=== PATIENT | male | born 1945 | race Caucasian/White ===

== ENCOUNTER 2017-12-02 06:13 | Observation (INO) | payer MEDICARE, OTHER ==
[~2017-12-02] VITALS: Ht 175.3 cm; Wt 72.0 kg
[~2017-12-02 06:13] MED LIST: AZIT500T34 PO; CALC-627 PO; ESCI10TA45 PO; NORCO10T PO; RIFA300C36 PO; SYN0.0125T PO; [UNRECOGNIZED DRUG - CODE] PO
[2017-12-02] MEDS ORDERED: normal saline 1000ML IV soln IVB ONE (06:45)
[2017-12-02 07:06] LABS: BASOPHILS % (AUTO) 0.7 % (0-1); EOSINOPHILS # (AUTO) 0.1 X10'3 (0-0.9); EOSINOPHILS % (AUTO) 2.1 % (0-6); HEMATOCRIT 45.1 % (42.0-52.0); HEMOGLOBIN 14.9 g/dl (14.0-17.9); LYMPHOCYTES # (AUTO) 0.9 X10'3 (1.1-4.8); LYMPHOCYTES % (AUTO) 12.2 % (21-51); MEAN CORPUSCULAR HEMOGLOBIN 26.1 PG (27.0-31.0); MEAN CORPUSCULAR HGB CONC 33.1 % (33.0-36.5); MEAN CORPUSCULAR VOLUME 78.9 FL (78-98); MEAN PLATELET VOLUME 8.8 FL (7.4-10.4); MONOCYTES # (AUTO) 0.7 X10'3 (0-0.9); MONOCYTES % (AUTO) 9.5 % (2-12); NEUTROPHILS # (AUTO) 5.4 X10'3 (1.8-7.7); NEUTROPHILS % (AUTO) 75.5 % (42-75); PLATELET COUNT 220 X10'3 (140-440); RED BLOOD COUNT 5.72 X10'6 (4.70-6.10); RED CELL DISTRIBUTION WIDTH 16.4 % (11.5-14.5); WHITE BLOOD COUNT 7.1 X10'3 (4.5-11.0)
[2017-12-02 07:15] LABS: PROTHROMBIN TIME 10.5 SECONDS (9.0-12.0)
[2017-12-02 07:23] LABS: ALANINE AMINOTRANSFERASE 31 U/L (12-78); ALBUMIN 3.5 G/DL (3.4-5.0); ALBUMIN/GLOBULIN RATIO 1.1 (1.1-1.5); ALKALINE PHOSPHATASE 80 IU/L (46-116); ANION GAP 11 (8-16); ASPARTATE AMINO TRANSFERASE 22 U/L (10-37); BILIRUBIN,TOTAL 0.4 MG/DL (0.1-1.0); BLOOD UREA NITROGEN 20 MG/DL (7-18); BUN/CREATININE RATIO 15.6 (5.4-32.0); CALCIUM 8.5 MG/DL (8.5-10.1); CHLORIDE 106 MMOL/L (99-107); CREATININE 1.28 MG/DL (0.60-1.10); GLUCOSE 111 MG/DL (70-104); POTASSIUM 3.7 MMOL/L (3.5-5.1); SODIUM 141 MMOL/L (135-145); TOTAL CARBON DIOXIDE 24.5 MMOL/L (24-32); TOTAL PROTEIN 6.7 G/DL (6.4-8.2); eGFR 56 ML/MIN
[2017-12-02 07:32] LABS: MAGNESIUM 2.1 MG/DL (1.5-2.4); PHOSPHORUS 2.4 MG/DL (2.3-4.5)
[2017-12-02 07:56] LABS: CLARITY,URINE CLEAR (Clear); COLOR,URINE YELLOW (Yellow); GLUCOSE, URINE NEGATIVE (Neg); KETONES,URINE NEGATIVE (Neg); LEUKOCYTE ESTERASE ,URINE NEGATIVE (Neg); NITRITES, URINE NEGATIVE (Neg); OCCULT BLOOD,URINE NEGATIVE (Neg); PROTEIN,URINE NEGATIVE (Neg); UROBILINOGEN,URINE 0.2 E.U/dL (0.2-1.0)
[2017-12-02 08:10] LABS: UA COLLECTION TYPE CLN CATCH MIDSTREAM
[2017-12-02] MEDS ORDERED: LEVO50TA66 PO (08:16)
[2017-12-02] MEDS ORDERED: LEVO75TA56 PO (08:16)
[2017-12-02] MEDS ORDERED: NYST50002 PO (08:20)
[2017-12-02] MEDS ORDERED: potassium Cl 40MEQ/NS 500ml 500 ML IV PRN ×2 (08:45)
[2017-12-02] MEDS ORDERED: magnesium 1gm/100ml D5W IVPB 100 ML IV PRN (08:45)
[2017-12-02] MEDS ORDERED: acetaminophen 325mg tablet PO PRN (08:45)
[2017-12-02] MEDS ORDERED: magnesium hydroxide 30ml (MOM) UD suspension PO PRN (08:45)
[2017-12-02] MEDS ORDERED: magnesium 4gm in 100ml NS 100 ML IV PRN (08:45)
[2017-12-02] MEDS ORDERED: mag hydrox/Alum hydrox/simeth 30ml oral suspension PO PRN (08:45)
[2017-12-02] MEDS ORDERED: potassium Cl 20 mEq SR tablet PO PRN ×2 (08:45)
[2017-12-02] MEDS ORDERED: ondansetron/PF 4mg/2ml inj IV PRN (08:45)
[2017-12-02] MEDS: normal saline 1000ml 1,000 ML IV SCH (09:56)
[2017-12-02] MEDS: fluticasone nasal spray 16GM bottle NS SCH (10:25)
[2017-12-02] MEDS: salt irrigation nasal spray 45 ML SPRAY NS SCH ×3 (11:00→21:36)
[2017-12-02 18:00] VITALS: BP 128/83
[2017-12-02 22:00] VITALS: BP_SYST 100; BP_SYST 102; BP_SYST 98; BP_DIAS 69; BP_DIAS 70; BP_DIAS 71
[2017-12-03 02:00] VITALS: BP 123/67
[2017-12-03] MEDS: salt irrigation nasal spray 45 ML SPRAY NS SCH (06:00)
[2017-12-03 06:01] LABS: BASOPHILS % (AUTO) 0.6 % (0-1); EOSINOPHILS # (AUTO) 0.3 X10'3 (0-0.9); EOSINOPHILS % (AUTO) 4.5 % (0-6); HEMATOCRIT 43.4 % (42.0-52.0); HEMOGLOBIN 14.2 g/dl (14.0-17.9); LYMPHOCYTES # (AUTO) 1.2 X10'3 (1.1-4.8); LYMPHOCYTES % (AUTO) 20.5 % (21-51); MEAN CORPUSCULAR HEMOGLOBIN 26.1 PG (27.0-31.0); MEAN CORPUSCULAR HGB CONC 32.6 % (33.0-36.5); MEAN CORPUSCULAR VOLUME 80.1 FL (78-98); MEAN PLATELET VOLUME 9.1 FL (7.4-10.4); MONOCYTES # (AUTO) 0.7 X10'3 (0-0.9); MONOCYTES % (AUTO) 11.8 % (2-12); NEUTROPHILS # (AUTO) 3.8 X10'3 (1.8-7.7); NEUTROPHILS % (AUTO) 62.6 % (42-75); PLATELET COUNT 207 X10'3 (140-440); RED BLOOD COUNT 5.42 X10'6 (4.70-6.10); RED CELL DISTRIBUTION WIDTH 16.5 % (11.5-14.5)
[2017-12-03 06:21] LABS: ALANINE AMINOTRANSFERASE 29 U/L (12-78); ALKALINE PHOSPHATASE 71 IU/L (46-116); ANION GAP 9 (8-16); ASPARTATE AMINO TRANSFERASE 22 U/L (10-37); BILIRUBIN,TOTAL 0.4 MG/DL (0.1-1.0); BLOOD UREA NITROGEN 12 MG/DL (7-18); BUN/CREATININE RATIO 12.1 (5.4-32.0); CALCIUM 7.9 MG/DL (8.5-10.1); CHLORIDE 109 MMOL/L (99-107); CHOL/HDL RATIO 6.8 (0.00-4.99); CHOLESTEROL 238 MG/DL (0-200); CREATININE 0.99 MG/DL (0.60-1.10); GLUCOSE 89 MG/DL (70-104); HDL CHOLESTEROL 35 MG/DL (35-60); LDL CHOLESTEROL 176 MG/DL (50-100); MAGNESIUM 1.8 MG/DL (1.5-2.4); POTASSIUM 4.2 MMOL/L (3.5-5.1); SODIUM 143 MMOL/L (135-145); TOTAL CARBON DIOXIDE 24.8 MMOL/L (24-32); TRIGLYCERIDES 120 MG/DL (20-135); eGFR 75 ML/MIN
[2017-12-03] MEDS ORDERED: levoTHYROXINE 125mcg tablet PO SCH (07:00)
[2017-12-03 07:04] VITALS: BP 123/72
[2017-12-03] MEDS: normal saline 1000ml 1,000 ML IV SCH (07:43)
[2017-12-03] MEDS: fluticasone nasal spray 16GM bottle NS SCH (07:44)
[2017-12-03] MEDS ORDERED: citalopram 20mg tablet PO SCH (08:00)
[2017-12-03] MEDS ORDERED: non-formulary drug (Levothyroxine Sodium (Levoxyl) 1 TAB) PO SCH (08:00)
[2017-12-03] MEDS ORDERED: enoxaparin 40mg/0.4ml syringe SQ SCH (08:00)
[2017-12-03] MEDS ORDERED: K and/or MAG REPLACEMENT MC SCH (08:00)
== END 2017-12-03 09:45 | disposition home or self-care (01) ==
LOC: ER 06:13 → ED HOLD 08:41 → ORTHO 4S 10:40
PROVIDERS: ADMIT Family Medicine; ATTEND Family Medicine
DX: R42 Dizziness and giddiness (principal); E03.9 Hypothyroidism, unspecified; R09.81 Nasal congestion; A69.20 Lyme disease, unspecified; Z85.850 Personal history of malignant neoplasm of thyroid; Z87.442 Personal history of urinary calculi
CPT/HCPCS: 36415; 70450; 70544; 70547; 70551; 71045; 80053; 80061; 81003; 83605; 83735; 84100; 84443; 84484; 85025; 85610; 87040; 87070; 93005; 93306; 93880; 96360; 96361; 96372; 99285; G0378; J1650; J7030

== ENCOUNTER 2017-12-15 22:47 | Emergency (ER) | payer MEDICARE, OTHER ==
[~2017-12-15] VITALS: Ht 175.3 cm; Wt 75.2 kg
[~2017-12-15 22:47] MED LIST changes: -AZIT500T34 PO; -CALC-627 PO; +LEVO50TA66 PO; +LEVO75TA56 PO; -NORCO10T PO; +NYST50002 PO; -RIFA300C36 PO; -SYN0.0125T PO; -[UNRECOGNIZED DRUG - CODE] PO
[2017-12-16] MEDS ORDERED: LORazepam 2 mg/ml vial IV ONE (00:15)
[2017-12-16] MEDS ORDERED: meclizine 12.5mg tablet PO ONE (00:15)
[2017-12-16] MEDS ORDERED: normal saline 1000ml 1,000 ML IV ONE (00:15)
[2017-12-16] MEDS ORDERED: ondansetron/PF 4mg/2ml inj IV ONE (00:15)
[2017-12-16] MEDS ORDERED: ONDA4TAB9 PO (01:29)
[2017-12-16] MEDS ORDERED: ketorolac trometh. 30mg/ml inj. IV ONE (01:30)
[2017-12-16 01:46] VITALS: BP 108/68
== END 2017-12-16 01:50 | disposition home or self-care (01) ==
LOC: ER 22:48
DX: R42 Dizziness and giddiness (principal); E03.9 Hypothyroidism, unspecified; G62.9 Polyneuropathy, unspecified; Z86.14 Personal history of Methicillin resistant Staphylococcus aureus infection; Z98.890 Other specified postprocedural states; Z87.442 Personal history of urinary calculi; Z88.8 Allergy status to other drugs, medicaments and biological substances; Z91.041 Radiographic dye allergy status; Z88.1 Allergy status to other antibiotic agents
CPT/HCPCS: 93005; 96361; 96374; 96375; 99284; J1885; J2060; J2405; J8597

== ENCOUNTER → 2018-02-17 | Outpatient (CLI) | payer MEDICARE, OTHER | END | disposition home or self-care (01) | LOC: LAB 13:59 | PROVIDERS: ATTEND Specialist | DX: C73 Malignant neoplasm of thyroid gland (principal) | CPT/HCPCS: 36415; 84443 ==

== ENCOUNTER → 2018-02-17 | Outpatient (CLI) | payer MEDICARE, OTHER | END | disposition home or self-care (01) | LOC: LAB 14:20 | PROVIDERS: ATTEND Family Medicine | DX: R35.1 Nocturia (principal); R97.20 Elevated prostate specific antigen [PSA] | CPT/HCPCS: 36415; 84153; 84154 ==

== ENCOUNTER 2018-07-14 08:59 | Emergency (ER) | payer MEDICARE, OTHER ==
[~2018-07-14] VITALS: Ht 175.3 cm; Wt 76.6 kg
--- NOTE | 2018-07-14 09:44 | NUR ---
COLLECTED URINE FROM PT, LAB AT BEDSIDE DRAWING PER ORDERS NOW, AUXILARY TO BRING URINE SPECIMEN TO LAB TO PROCESS PER SUSHILA.
[2018-07-14 10:03] LABS: BASOPHILS % (AUTO) 0.7 % (0-1); EOSINOPHILS # (AUTO) 0.2 X10'3 (0-0.9); EOSINOPHILS % (AUTO) 2.9 % (0-6); HEMATOCRIT 43.3 % (42.0-52.0); HEMOGLOBIN 14.2 g/dl (14.0-17.9); LYMPHOCYTES % (AUTO) 14.9 % (21-51); MEAN CORPUSCULAR HEMOGLOBIN 25.1 PG (27.0-31.0); MEAN CORPUSCULAR HGB CONC 32.8 g/dL (33.0-36.5); MEAN CORPUSCULAR VOLUME 76.8 FL (78-98); MEAN PLATELET VOLUME 7.9 FL (7.4-10.4); MONOCYTES # (AUTO) 0.8 X10'3 (0-0.9); MONOCYTES % (AUTO) 11.9 % (2-12); NEUTROPHILS # (AUTO) 4.5 X10'3 (1.8-7.7); NEUTROPHILS % (AUTO) 69.6 % (42-75); PLATELET COUNT 261 X10'3 (140-440); RED BLOOD COUNT 5.64 X10'6 (4.70-6.10); RED CELL DISTRIBUTION WIDTH 17.1 % (11.5-14.5); WHITE BLOOD COUNT 6.5 X10'3 (4.5-11.0)
[2018-07-14 10:13] LABS: CLARITY,URINE CLEAR (Clear); GLUCOSE, URINE NEGATIVE (Neg); KETONES,URINE TRACE mg/dl (Neg); LEUKOCYTE ESTERASE ,URINE NEGATIVE (Neg); NITRITES, URINE NEGATIVE (Neg); OCCULT BLOOD,URINE NEGATIVE (Neg); PROTEIN,URINE TRACE mg/dl (Neg); UROBILINOGEN,URINE 0.2 E.U/dL (0.2-1.0)
[2018-07-14 10:18] LABS: URINE AMPHETAMINE SCREEN NEGATIVE (Neg); URINE BARBITUATE SCREEN NEGATIVE (Neg); URINE BENZODIAZEPINES SCREEN NEGATIVE (Neg); URINE CANNABINOID SCREEN NEGATIVE (Neg); URINE COCAINE SCREEN NEGATIVE (Neg); URINE METHADONE SCREEN NEGATIVE (Neg); URINE OPIATE SCREEN NEGATIVE (Neg); URINE PHENCYCLIDINE SCREEN NEGATIVE (Neg)
[2018-07-14 10:21] LABS: COLOR,URINE DARK YELLOW (Yellow); UA COLLECTION TYPE VOIDED
[2018-07-14 10:22] LABS: ALANINE AMINOTRANSFERASE 61 U/L (12-78); ALBUMIN 3.1 G/DL (3.4-5.0); ALBUMIN/GLOBULIN RATIO 0.8 (1.1-1.5); ALKALINE PHOSPHATASE 94 IU/L (46-116); ANION GAP 9 (8-16); ASPARTATE AMINO TRANSFERASE 28 U/L (10-37); BILIRUBIN,TOTAL 0.3 MG/DL (0.1-1.0); BLOOD UREA NITROGEN 24 MG/DL (7-18); BUN/CREATININE RATIO 17.8 (5.4-32.0); CALCIUM 8.3 MG/DL (8.5-10.1); CHLORIDE 107 MMOL/L (99-107); CREATININE 1.35 MG/DL (0.60-1.10); GLUCOSE 100 MG/DL (70-104); POTASSIUM 3.9 MMOL/L (3.5-5.1); SODIUM 140 MMOL/L (135-145); TOTAL CARBON DIOXIDE 24.4 MMOL/L (24-32); TOTAL PROTEIN 6.8 G/DL (6.4-8.2); eGFR 52 ML/MIN
[2018-07-14 10:23] LABS: BACTERIA,URINE FEW /HPF (Neg); CAL OXALATE CRYSTALS 2+ /HPF (NEGATIVE); MUCUS STRANDS FEW /LPF (Neg); RBC,URINE 0-2 /HPF (0-2); SQUAMOUS EPITHELIAL CELL,UR FEW /LPF (FEW); WBC,URINE 20-30 /HPF (0-4)
[2018-07-14] MEDS ORDERED: DOXY100C43 PO (10:40)
[2018-07-14 10:56] VITALS: BP 122/68
== END 2018-07-14 11:00 | disposition home or self-care (01) ==
LOC: ER 09:00
DX: N39.0 Urinary tract infection, site not specified (principal); M76.61 Achilles tendinitis, right leg; M79.605 Pain in left leg; E03.9 Hypothyroidism, unspecified; Z86.14 Personal history of Methicillin resistant Staphylococcus aureus infection; Z98.890 Other specified postprocedural states; Z88.1 Allergy status to other antibiotic agents; Z91.041 Radiographic dye allergy status; Z88.8 Allergy status to other drugs, medicaments and biological substances; Z79.899 Other long term (current) drug therapy
CPT/HCPCS: 36415; 80053; 80305; 81001; 84145; 85025; 85651; 87088; 99283

== ENCOUNTER 2020-10-05 12:24 | Emergency (ER) | payer MEDICARE, OTHER ==
[~2020-10-05] VITALS: Ht 175.3 cm; Wt 72.7 kg
[2020-10-05] MEDS ORDERED: dexamethasone sod phosphate 10mg/ml inj IV STA ×2 (12:38→13:47)
[2020-10-05] MEDS ORDERED: acetaminophen 325mg tablet PO STA (12:38)
[2020-10-05] MEDS ORDERED: CefTRIAXone 2gm/D5W 50ml BAG 50 ML IV ONE (12:40)
[2020-10-05] MEDS ORDERED: normal saline 1000ML IV soln IV ONE (12:40)
[2020-10-05 13:11] LABS: BASOPHILS % (AUTO) 0.4 % (0-1); EOSINOPHILS % (AUTO) 0 % (0-6); HEMATOCRIT 47.4 % (42.0-52.0); HEMOGLOBIN 15.5 g/dl (14.0-17.9); LYMPHOCYTES # (AUTO) 0.6 X10'3 (1.1-4.8); LYMPHOCYTES % (AUTO) 12.4 % (21-51); MEAN CORPUSCULAR HEMOGLOBIN 27.7 PG (27.0-31.0); MEAN CORPUSCULAR HGB CONC 32.6 g/dL (33.0-36.5); MEAN CORPUSCULAR VOLUME 84.8 FL (78-98); MEAN PLATELET VOLUME 9.4 FL (7.4-10.4); MONOCYTES # (AUTO) 0.4 X10'3 (0-0.9); MONOCYTES % (AUTO) 6.9 % (2-12); NEUTROPHILS # (AUTO) 4.1 X10'3 (1.8-7.7); NEUTROPHILS % (AUTO) 80.3 % (42-75); PLATELET COUNT 165 X10'3 (140-440); RED BLOOD COUNT 5.59 X10'6 (4.70-6.10); RED CELL DISTRIBUTION WIDTH 14.7 % (11.5-14.5); WHITE BLOOD COUNT 5.2 X10'3 (4.5-11.0)
[2020-10-05] MEDS ORDERED: CASIRIVIMAB (REGN10933) 1332MG 600 MG, IMDEVIMAB (REGN10987) 1332mg 600 MG in normal sa... IV ONE (14:35)
[2020-10-05 14:53] LABS: ALANINE AMINOTRANSFERASE 27 U/L (12-78); ALBUMIN 3.2 G/DL (3.4-5.0); ALBUMIN/GLOBULIN RATIO 0.8 (1.1-1.5); ALKALINE PHOSPHATASE 86 IU/L (46-116); ANION GAP 15 (8-16); ASPARTATE AMINO TRANSFERASE 32 U/L (10-37); BILIRUBIN,TOTAL 0.3 MG/DL (0.1-1.0); BLOOD UREA NITROGEN 25 MG/DL (7-18); BUN/CREATININE RATIO 12.4 (5.4-32.0); CALCIUM 8.1 MG/DL (8.5-10.1); CHLORIDE 107 MMOL/L (99-107); CREATININE 2.02 MG/DL (0.60-1.10); GLUCOSE 91 MG/DL (70-104); POTASSIUM 4.5 MMOL/L (3.5-5.1); SODIUM 142 MMOL/L (135-145); TOTAL CARBON DIOXIDE 20.3 MMOL/L (24-32); TOTAL PROTEIN 7.2 G/DL (6.4-8.2); eGFR 33 ML/MIN
--- NOTE | 2020-10-05 18:34 | NUR ---
PT HAS READ INFORMED PAPERWORK FOR MONOCLONAL ANTIBODIES AND IS AGREEABLE TO GET MEDICINE
[2020-10-05] MEDS ORDERED: DEXA4TAB67 PO (18:43)
[2020-10-05] MEDS ORDERED: ALBU6.7H9 INH (18:43)
[2020-10-05] MEDS ORDERED: AZIT500T PO (18:43)
--- NOTE | 2020-10-05 20:29 | NUR ---
PT VITALS REMAIN STABLE. PT REPORTS NO WORSENING CONDITION. RESTING W/O COMPLAINT.
[2020-10-05 20:51] VITALS: BP 121/65
== END 2020-10-05 20:59 | disposition home or self-care (01) ==
LOC: ER 12:25
DX: U07.1 COVID-19 (principal); J12.82 Pneumonia due to coronavirus disease 2019; R05 Cough; E86.0 Dehydration; E03.9 Hypothyroidism, unspecified; Z87.01 Personal history of pneumonia (recurrent); Z87.442 Personal history of urinary calculi; Z86.14 Personal history of Methicillin resistant Staphylococcus aureus infection; Z85.9 Personal history of malignant neoplasm, unspecified; Z98.890 Other specified postprocedural states; Z88.1 Allergy status to other antibiotic agents; Z88.8 Allergy status to other drugs, medicaments and biological substances; Z79.2 Long term (current) use of antibiotics; Z79.899 Other long term (current) drug therapy
CPT/HCPCS: 36415; 71045; 80053; 83605; 83880; 84145; 84484; 85025; 87040; 93005; 96365; 96375; 99291; J0696; J1100; J7030; M0243; Q0243

== ENCOUNTER 2021-08-04 17:00 | Emergency (ER) | payer MEDICARE, BC ==
[~2021-08-04] VITALS: Ht 175.3 cm; Wt 72.0 kg
[~2021-08-04 17:00] MED LIST changes: +ALBU6.7H9 INH; +DEXA4TAB67 PO
[2021-08-04] MEDS ORDERED: OXYC-481 PO (18:39)
[2021-08-04] MEDS ORDERED: ketorolac trometh. 30mg/ml inj. IM ONE (18:40)
[2021-08-04 19:58] VITALS: BP 130/83
== END 2021-08-04 20:00 | disposition home or self-care (01) ==
LOC: ER 17:02
DX: M53.3 Sacrococcygeal disorders, not elsewhere classified (principal); Z86.16 Personal history of COVID-19; G62.9 Polyneuropathy, unspecified; E03.9 Hypothyroidism, unspecified; Z86.14 Personal history of Methicillin resistant Staphylococcus aureus infection; Z85.9 Personal history of malignant neoplasm, unspecified; Z87.01 Personal history of pneumonia (recurrent); Z87.442 Personal history of urinary calculi; Z98.890 Other specified postprocedural states; Z88.1 Allergy status to other antibiotic agents; Z88.8 Allergy status to other drugs, medicaments and biological substances; Z79.899 Other long term (current) drug therapy; Z91.041 Radiographic dye allergy status
CPT/HCPCS: 72220; 96372; 99284; J1885

== ENCOUNTER 2024-09-28 20:20 | Emergency (ER) | payer MEDICARE, OTHER ==
[~2024-09-28] VITALS: Ht 175.3 cm; Wt 77.9 kg
[~2024-09-28 20:20] MED LIST changes: +ALBU6.7H14 INH; -ALBU6.7H9 INH
--- NOTE | 2024-09-29 02:26 | Physician Documentation ---
History of Present Illness ~ Chief Complaint: Back Pain Stated Complaint: LOWER BACK PAIN Time Seen by MD: 02:25 OK to notify your PCP?: Yes Primary Medical Doctor: Dr. Heraclio Cox Source: patient, RN/MD, RN notes reviewed, old records Mode of Arrival: POV Exam Limitations: no limitations HPI 79 year old male seen in bed 17 presents to the emergency department for complaints of back pain that has been present for four days. He states that four days ago he began to have pain in his lower lumbar area of his spine that radiates to his gluteus muscles after working on his property. He states that the pain is a deep aching pain with a burning sensation in his gluteus that r adiates to his thighs. He states that the pain begins at night and he treats it with a massage gun, Epsom salt bath, and cold shower. Patient states that he has been taking Ibuprofen and Tylenol for pain. Medication Reconciliation Allergies: Coded Allergies: gluten (Unverified Allergy, Severe, 04/28/10) ABD PAIN, DIARRHEA AND BLOATING red dye (Verified Allergy, Intermediate, PALPITATIONS, 04/27/10) Bacitracin Zinc (Verified Allergy, Mild, RASH, 04/27/10) bacitracin (Verified Allergy, Mild, RASH, 04/27/10) gramicidin D (Verified Allergy, Mild, RASH, 04/27/10) neomycin sulfate (Verified Allergy, Mild, RASH, 04/27/10) polymyxin B (Verified Allergy, Mild, RASH, 04/27/10) polymyxin B sulfate (Verified Allergy, Mild, RASH, 04/27/10) cefuroxime axetil (Verified Adverse Reaction, Intermediate, ABDOMINAL CRAMPS, 04/27/10) Scheduled Albuterol Sulfate (Proventil Hfa), 2 PUFFS INH Q6H Cyclobenzaprine* (Cyclobenzaprine*), 1 TAB PO HS Dexamethasone (Decadron), 1 TAB PO Q12H Escitalopram Oxalate* (Lexapro*), 10 MG PO DAILY, (Reported) Levothyroxine Sodium (Levoxyl), 1 TAB PO DAILY, (Reported) Levothyroxine Sodium (Levoxyl), 1 TAB PO DAILY, (Reported) Nystatin (Nystatin), 1 TAB PO Q6H, (Reported) Past Medical History Past Medical History: Peripheral Neuropathy, Vertigo, Bronchitis, Pneumonia, Kidney Stones, Hypothyroidism, MRSA Abscess, *CANCER* Past Surgical History: abdominal surgery, other Other Past Surgical History: hemithyroidectomy Patient History: Aplastic anemia FATHER FH: atrial fibrillation FATHER FH: diabetes mellitus GRANDFATHER OR GRANDMOTHER Other Past Family History: GRANDPARENTS HX OF DIABETES Alcohol Use: None Drug Use: none Lives with: Spouse Lives In: Home Occupation: retired Review of Systems All Other Systems at this time: Reviewed and Negative ROS As stated above in the HPI, otherwise all systems are reviewed and negative. Physical Exam Physical Exam Vital Signs: RN Vital Signs have been reviewed: Yes, Temperature: 98.6, Source: Temporal, Heart Rate: 60, Respiratory Rate: 16, BP: 123/67, Pulse Oximetry: 98, Weight: 77.900 Oxygen Flow Rate: 0 Pulse Oximetry Reflects: adequate oxygenation Physical Exam General: The patient is well developed, well nourished, nontoxic appearing and is in no acute distress. Skin: [place]uh[place], warm and dry with no rashes. HEENT: Head was normocephalic and atraumatic. Eyes - pupils equal, round, reactive to light and accommodation. Extraocular movements were intact. Conjunctivae were nonicteric. Ears - bilateral tympanic membranes were normal. The mouth and oropharynx were clear with moist mucous membranes. There were no pharyngeal exudates or erythema. Neck: Supple and nontender. There was no jugular venous distention, lymphadenopathy, thyromegaly or masses. Chest: Clear to auscultation bilaterally without wheezes, rales or rhonchi. No accessory muscle use. No dullness to percussion. Heart: Rate regular and rhythmic. S1, S2. No murmurs. Palpation of the chest wall was normal. No rubs or thrills. Abdomen: Tenderness to L4/L5. Edema across sacrum. Soft, nontender and nondistended. Positive bowel sounds. No guarding or rebound. No hepatosplenomegaly or palpable masses. Extremities: No cyanosis, clubbing or edema. The patient moves all extremities. Pulses were equal and symmetric. Neurologic: Cranial nerves II-XII were intact. Sensation was intact to light touch throughout. Motor strength was 5/5 in all four extremities. Deep tendon reflexes were intact in both upper and lower extremities. Psychologic: The patient was oriented to person, place and time. The patient demonstrated appropriate judgement and insight. Progress Results/Orders Results/Orders Vital Signs 09/28/24 09/28/24 20:36 22:44 Temp 97.5 98.6 Pulse 64 60 Resp 16 16 B/P (MAP) 122/66 123/67 (85) Pulse Ox 97 98 O2 Flow Rate 0 Laboratory Tests Test 09/29/24 02:53 White Blood Count 5.2 Red Blood Count 5.66 Hemoglobin 16.8 Hematocrit 48.6 Mean Corpuscular Volume 85.8 Mean Corpuscular Hemoglobin 29.7 Mean Corpuscular Hemoglobin Concent 34.6 Red Cell Distribution Width 14.3 Platelet Count 236 Mean Platelet Volume 8.1 Neutrophils (%) (Auto) 56.8 Lymphocytes (%) (Auto) 28.4 Monocytes (%) (Auto) 10.9 Eosinophils (%) (Auto) 3.1 Basophils (%) (Auto) 0.8 Neutrophils # (Auto) 3.0 Lymphocytes # (Auto) 1.5 Monocytes # (Auto) 0.6 Eosinophils # (Auto) 0.2 Basophils # (Auto) 0.0 CBC Comment Sodium Level 138 Potassium Level 4.6 Chloride Level 105 Carbon Dioxide Level 27.0 Anion Gap 6 L Blood Urea Nitrogen 19 H Creatinine 1.04 Estimated GFR/1.73 m2 69 BUN/Creatinine Ratio 18.3 Glucose Level 102 Hemoglobin A1c 5.3 Calcium Level 8.8 Magnesium Level 2.3 Total Bilirubin 0.4 Direct Bilirubin 0.1 Aspartate Amino Transf (AST/SGOT) 26 Alanine Aminotransferase (ALT/SGPT) 38 Alkaline Phosphatase 71 Total Protein 7.2 Albumin 3.9 Globulin 3.3 Albumin/Globulin Ratio 1.2 Chemistry Comments EKG/XRAY/CT/US/VASC/MRI CT : Impression EXAM: CT CT LUMBAR SPINE INDICATION: pain COMPARISON: SACRUM COCCYX on DOS: 08/04/21 TECHNIQUE: Multiple axial CT images of the lumbar spine were obtained using bone algorithm. Axial and coronal reformatting was done. Bone and soft tissue windows were reviewed. Radiation optimization: All CT scans at this facility use at least one of these dose optimization techniques: automated exposure control mA and/or kV adjustment per patient size (includes targeted exams where dose is matched to clinical indication) or iterative reconstruction. Radiation Dose Information: CT Dose: CTDI volume is 21 mGy. Dose-length product is 755 mGy*cm FINDINGS: There is mild levoscoliosis of the lumbar spine. No significant listhesis. L1-L2, there is intervertebral disc space narrowing with vacuum disc phenomenon and endplate changes. Mild endplate spurring and left disc herniation resulting in moderate left neural foraminal stenosis and mild right neural foraminal stenosis. L2-L3 mild disc bulge and endplate osteophytes results in severe right neural foraminal stenosis and mild left neural foraminal stenosis. L3-L4, diffuse disc bulging results in mild bilateral neural foraminal stenosis L4-L5, diffuse disc herniation and mild facet arthropathy results in moderate left and mild right neural foraminal stenosis. L5-S1, left paracentral disc herniation abuts the descending S1 nerve root with mild bilateral neural foraminal stenosis. Incidental 1.3 cm right adrenal adenoma IMPRESSION: 1. Multilevel disc disease with abutment of the left descending S1 nerve root at L5-S1 due to paracentral disc herniation. Electronically Signed by:MARILUZ JC MD Date & Time: 09/29/24341 Departure Time of Disposition: 04:23 Disposition: 01 HOME / SELF CARE / HOMELESS Impression: Primary Impression: L5 disc herniation Additional Impressions: Degenerative disc disease Pinched nerve Discharge Instructions: Managing Chronic Back Pain Additional Instructions: Follow up with Abbe Doe or another neurosurgeon. Referrals: NO PRIMARY CARE PROVIDER (PCP) MARK OLIVERA MD Prescriptions Cyclobenzaprine* (Cyclobenzaprine*) 10 Mg Tablet 1 TAB PO HS for muscle spasms for 30 Days, #30 TAB 0 Refills Prov: AFUA MAK MD 09/29/24 Education Educated: Patient Educated regarding: diagnosis, treatment, prognosis, need for follow up Signature Scribe Signature: Scribed for Afua Mak MD by Effie Huizar . 09/29/24 02:49 Attestation: The note accurately reflects work and decisions made by me.Afua Mak MD 09/29/24 02:26 AFUA MAK MD Sep 29, 2024 02:26 EFFIE OLEA Sep 29, 2024 02:46
[2024-09-29 03:09] LABS: MEAN PLATELET VOLUME 8.1 FL (7.4-10.4); RED CELL DISTRIBUTION WIDTH 14.3 % (11.5-14.5)
[2024-09-29 03:17] LABS: CREATININE 1.04 MG/DL (0.60-1.10); TOTAL CARBON DIOXIDE 27.0 MMOL/L (24-32); eCRCL 59 ML/MIN; eGFR 69 ML/MIN
--- NOTE | 2024-09-29 03:44 | RADIOLOGY REPORT ---
EXAM: CT CT LUMBAR SPINE INDICATION: pain COMPARISON: SACRUM COCCYX on DOS: 08/04/21 TECHNIQUE: Multiple axial CT images of the lumbar spine were obtained using bone algorithm. Axial an d coronal reformatting was done. Bone and soft tissue windows were reviewed. Radiation optimization: All CT scans at this facility use at least one of these dose optimization malika hniques: automated exposure control mA and/or kV adjustment per patient size (includes targeted exam s where dose is matched to clinical indication) or iterative reconstruction. Radiation Dose Information: CT Dose: CTDI volume is 21 mGy. Dose-length product is 755 mGy*cm FINDINGS: There is mild levoscoliosis of the lumbar spine. No significant listhesis. L1-L2, there is intervertebral disc space narrowing with vacuum disc phenomenon and endplate changes. Mild endplate spurring and left disc herniation resulting in moderate left neural foraminal stenosis and mild right neural foraminal stenosis. L2-L3 mild disc bulge and endplate osteophytes results in severe right neural foraminal stenosis and mild left neural foraminal stenosis. L3-L4, diffuse disc bulging results in mild bilateral neural foraminal stenosis L4-L5, diffuse disc herniation and mild facet arthropathy results in moderate left and mild right mansoor ral foraminal stenosis. L5-S1, left paracentral disc herniation abuts the descending S1 nerve root with mild bilateral neural foraminal stenosis. Incidental 1.3 cm right adrenal adenoma IMPRESSION: 1. Multilevel disc disease with abutment of the left descending S1 nerve root at L5-S1 due to paracen tral disc herniation.
[2024-09-29] MEDS ORDERED: CYCL-1 PO (04:19)
[2024-09-29] MEDS ORDERED: TRAM50TA2 PO (04:20)
[2024-09-29] MEDS: triamcinolone acetonide 40mg/ml inj IM ONE (04:27)
[2024-09-29 05:08] VITALS: BP 122/66; PULSE 55; RESP 16; TEMP 98.6; O2SAT 99
== END 2024-09-29 05:09 | disposition home or self-care (01) ==
LOC: ER 20:20
DX: M51.26 Other intervertebral disc displacement, lumbar region (principal); M51.360 Other intervertebral disc degeneration, lumbar region with discogenic back pain only; G58.8 Other specified mononeuropathies; E03.9 Hypothyroidism, unspecified; Z79.899 Other long term (current) drug therapy; Z88.8 Allergy status to other drugs, medicaments and biological substances; Z87.442 Personal history of urinary calculi
CPT/HCPCS: 36415; 72131; 80048; 80076; 83036; 83735; 85025; 96372; 99285; J3301